=== PATIENT | male | born 1950 ===

== ENCOUNTER 2018-10-15 13:01 | Outpatient (CLI) | payer OTHER ==
[~2018-10-15] VITALS: Ht 193 cm; Wt 76.7 kg
== END 2018-10-15 13:15 | disposition home or self-care (01) ==
LOC: OFIC 805 13:01
DX: H61.23 Impacted cerumen, bilateral (principal); H60.599 Other noninfective acute otitis externa, unspecified ear; H90.3 Sensorineural hearing loss, bilateral

== ENCOUNTER 2018-11-09 13:22 | Outpatient (CLI) | payer OTHER ==
[~2018-11-09] VITALS: Ht 182.9 cm; Wt 76.7 kg
== END 2018-11-09 13:40 | disposition home or self-care (01) ==
LOC: OFIC 805 13:22
DX: H90.3 Sensorineural hearing loss, bilateral (principal)